=== PATIENT | male | born 1990 | race Two or more races ===

== ENCOUNTER → 2025-05-27 | Outpatient (CLI) | payer BC, SELFPAY ==
--- NOTE | 2025-05-27 11:46 | EKG_ITS ---
[facility] Test Date: 2025-05-27 Pat Name: MATTHEW CHAMBERS Department: Room: - Gender: Male Sales Account Leader: [facility] : 1990 Requested By: Thong Andrews (PCP) Order Number: [id number] Reading MD: Thong Andrews (PCP) Measurements Intervals [place] Rate: 70 P: 65 GA: 135 QRS: 65 QRSD: 109 T: 64 QT: 365 QTc: 396 Interpretive Statements SINUS RHYTHM WITH MARKED SINUS ARRHYTHMIA INCOMPLETE RIGHT BUNDLE BRANCH BLOCK [90+ ms QRS DURATION, TERMINAL R IN V1/V2, 40+ ms S IN I/aVL/V4/V5/V6] No previous ECG available for comparison /store/S0/[id number].pdf
== END | disposition home or self-care (01) ==
PROVIDERS: PCP Family Medicine; Referring Provider Family Medicine; Visit Provider Family Medicine
DX: R07.9 Chest pain, unspecified (principal); R00.2 Palpitations
CPT/HCPCS: 93005